=== PATIENT | male | born 2000 | race Caucasian/White ===

== ENCOUNTER 2023-07-23 18:28 | Emergency (ER) | payer MEDICAID ==
[~2023-07-23] VITALS: Ht 170.2 cm; Wt 77.1 kg
[2023-07-23 18:52] VITALS: BP 139/84; PULSE 94; RESP 16; TEMP 99.2; O2SAT 97
[2023-07-23] MEDS: DEXAMETHASONE 10 MG/ML VIAL IM ONE (19:37)
[2023-07-23 19:50] LABS: FLU A ANTIGEN negative (NEGATIVE); FLU B ANTIGEN NEGATIVE (NEGATIVE)
[2023-07-23 20:00] VITALS: BP 139/91; PULSE 85; RESP 12; TEMP 98.5; O2SAT 95
[2023-07-23] MEDS ORDERED: AMOX500C25 PO (20:21)
[2023-07-23] MEDS ORDERED: ONDA-188 PO (20:21)
[2023-07-23] MEDS ORDERED: LIDO100S PO (20:21)
[2023-07-23] MEDS ORDERED: LOPE1TAB14 PO (20:37)
== END 2023-07-23 20:32 | disposition home or self-care (01) ==
LOC: MED 18:28
DX: J02.0 Streptococcal pharyngitis (principal); R19.7 Diarrhea, unspecified; R11.2 Nausea with vomiting, unspecified; Z20.822 Contact with and (suspected) exposure to COVID-19; Z79.899 Other long term (current) drug therapy
CPT/HCPCS: 87081; 87426; 87804; 96372; 99283; J1100